=== PATIENT | female | born 1965 | race Caucasian/White ===

== ENCOUNTER 2018-07-30 17:35 | Emergency (ER) | payer MEDICAID ==
[~2018-07-30] VITALS: Ht 157.5 cm; Wt 67.3 kg
[~2018-07-30 17:35] MED LIST: DICL50TA6 PO; HYDR-4383 PO; OMEP40CA PO; ONDA4TAB6 PO
[2018-07-30 18:16] LABS: BASOPHILS % (AUTO) 0.3 % (0-1); EOSINOPHILS # (AUTO) 0.1 X10'3 (0-0.9); EOSINOPHILS % (AUTO) 0.8 % (0-6); HEMATOCRIT 45.5 % (35.0-45.0); HEMOGLOBIN 15.7 g/dl (12.0-16.0); LYMPHOCYTES % (AUTO) 16.5 % (21-51); MEAN CORPUSCULAR HEMOGLOBIN 32.2 PG (27.0-31.0); MEAN CORPUSCULAR HGB CONC 34.4 % (33.0-36.5); MEAN CORPUSCULAR VOLUME 93.7 FL (78-98); MEAN PLATELET VOLUME 9.1 FL (7.4-10.4); MONOCYTES # (AUTO) 0.7 X10'3 (0-0.9); MONOCYTES % (AUTO) 5.6 % (2-12); NEUTROPHILS # (AUTO) 9.3 X10'3 (1.8-7.7); NEUTROPHILS % (AUTO) 76.8 % (42-75); PLATELET COUNT 351 X10'3 (140-440); RED BLOOD COUNT 4.86 X10'6 (4.20-5.60); RED CELL DISTRIBUTION WIDTH 14.7 % (11.5-14.5); WHITE BLOOD COUNT 12.1 X10'3 (4.5-11.0)
[2018-07-30 18:31] LABS: ALANINE AMINOTRANSFERASE 38 U/L (12-78); ALBUMIN 3.6 G/DL (3.4-5.0); ALBUMIN/GLOBULIN RATIO 0.8 (1.1-1.5); ALKALINE PHOSPHATASE 175 IU/L (46-116); ANION GAP 13 (8-16); ASPARTATE AMINO TRANSFERASE 19 U/L (10-37); BILIRUBIN,TOTAL 0.4 MG/DL (0.1-1.0); BLOOD UREA NITROGEN 14 MG/DL (7-18); CALCIUM 10.2 MG/DL (8.5-10.1); CHLORIDE 101 MMOL/L (99-107); CREATININE 1.17 MG/DL (0.40-0.90); GLUCOSE 110 MG/DL (70-104); LIPASE 229 U/L (73-393); POTASSIUM 3.5 MMOL/L (3.5-5.1); SODIUM 137 MMOL/L (135-145); TOTAL CARBON DIOXIDE 23.2 MMOL/L (24-32); TOTAL PROTEIN 8.4 G/DL (6.4-8.2); eGFR 49 ML/MIN
[2018-07-30 18:48] LABS: PROTHROMBIN TIME 10.3 SECONDS (9.0-12.0)
[2018-07-30] MEDS ORDERED: albuterol 2.5 MG/3 ML nebule NEB ONE (20:10)
[2018-07-30] MEDS ORDERED: ondansetron/PF 4mg/2ml inj IV ONE (20:10)
[2018-07-30] MEDS ORDERED: normal saline 1000ML IV soln IVB ONE (20:10)
[2018-07-30] MEDS ORDERED: benzonatate 100mg capsule PO ONE (20:10)
[2018-07-30] MEDS ORDERED: acetaminophen 325mg tablet PO ONE (21:45)
[2018-07-30 21:58] LABS: CLARITY,URINE CLEAR (Clear); COLOR,URINE YELLOW (Yellow); GLUCOSE, URINE NEGATIVE (Neg); KETONES,URINE NEGATIVE (Neg); LEUKOCYTE ESTERASE ,URINE NEGATIVE (Neg); NITRITES, URINE NEGATIVE (Neg); OCCULT BLOOD,URINE NEGATIVE (Neg); PROTEIN,URINE 100 mg/dl (Neg)
[2018-07-30 22:11] LABS: UA COLLECTION TYPE CLN CATCH MIDSTREAM
[2018-07-30 22:12] LABS: BACTERIA,URINE FEW /HPF (Neg); RBC,URINE 0-2 /HPF (0-2); SQUAMOUS EPITHELIAL CELL,UR FEW /LPF (FEW); WBC,URINE 0-4 /HPF (0-4)
[2018-07-30 22:36] LABS: URINE HCG POSITIVE (NEG)
[2018-07-30] MEDS ORDERED: BENZ-16 PO (22:43)
[2018-07-30] MEDS ORDERED: ONDA8TAB6 PO (22:43)
[2018-07-30] MEDS ORDERED: ALBU18HF2 IH (22:43)
[2018-07-30 22:49] VITALS: BP 149/74
== END 2018-07-30 22:55 | disposition home or self-care (01) ==
LOC: ER 17:36
DX: E86.0 Dehydration (principal); J06.9 Acute upper respiratory infection, unspecified; R11.2 Nausea with vomiting, unspecified; R06.2 Wheezing; R10.10 Upper abdominal pain, unspecified; R10.84 Generalized abdominal pain; F17.210 Nicotine dependence, cigarettes, uncomplicated; Z88.8 Allergy status to other drugs, medicaments and biological substances; Z88.6 Allergy status to analgesic agent; Z79.899 Other long term (current) drug therapy
CPT/HCPCS: 36415; 71046; 80053; 81001; 81025; 82948; 83690; 85025; 85610; 87502; 87503; 94640; 94760; 96374; 99284; J2405; J7030

== ENCOUNTER 2019-07-13 13:31 | Emergency (ER) | payer MEDICAID ==
[~2019-07-13] VITALS: Ht 160 cm; Wt 64.0 kg
[~2019-07-13 13:31] MED LIST changes: +ALBU18HF2 IH; +ONDA8TAB6 PO
[2019-07-13 13:39] VITALS: BP 135/83
[2019-07-13] MEDS ORDERED: morphine 4 MG/ML inj SYRINge IM ONE (15:00)
[2019-07-13] MEDS ORDERED: ondansetron 4mg rapidly disintigrating tab PO ONE (15:00)
[2019-07-13 15:10] LABS: CLARITY,URINE CLEAR (Clear); COLOR,URINE YELLOW (Yellow); GLUCOSE, URINE NEGATIVE (Neg); KETONES,URINE NEGATIVE (Neg); LEUKOCYTE ESTERASE ,URINE NEGATIVE (Neg); NITRITES, URINE NEGATIVE (Neg); OCCULT BLOOD,URINE NEGATIVE (Neg); PH,URINE 6.5 (4.8-8.0); PROTEIN,URINE NEGATIVE (Neg); UROBILINOGEN,URINE 0.2 E.U/dL (0.2-1.0)
[2019-07-13 15:11] LABS: UA COLLECTION TYPE CLN CATCH MIDSTREAM
[2019-07-13 15:27] LABS: BASOPHILS % (AUTO) 0.5 % (0-1); EOSINOPHILS % (AUTO) 0.5 % (0-6); HEMATOCRIT 41.8 % (35.0-45.0); HEMOGLOBIN 14.4 g/dl (12.0-16.0); LYMPHOCYTES # (AUTO) 1.8 X10'3 (1.1-4.8); LYMPHOCYTES % (AUTO) 31.7 % (21-51); MEAN CORPUSCULAR HEMOGLOBIN 31.3 PG (27.0-31.0); MEAN CORPUSCULAR HGB CONC 34.6 g/dL (33.0-36.5); MEAN CORPUSCULAR VOLUME 90.5 FL (78-98); MEAN PLATELET VOLUME 9.1 FL (7.4-10.4); MONOCYTES # (AUTO) 0.2 X10'3 (0-0.9); MONOCYTES % (AUTO) 4.1 % (2-12); NEUTROPHILS # (AUTO) 3.6 X10'3 (1.8-7.7); NEUTROPHILS % (AUTO) 63.2 % (42-75); PLATELET COUNT 330 X10'3 (140-440); RED BLOOD COUNT 4.62 X10'6 (4.20-5.60); RED CELL DISTRIBUTION WIDTH 13.6 % (11.5-14.5); WHITE BLOOD COUNT 5.7 X10'3 (4.5-11.0)
[2019-07-13 15:44] LABS: ALANINE AMINOTRANSFERASE 19 U/L (12-78); ALBUMIN 4.1 G/DL (3.4-5.0); ALBUMIN/GLOBULIN RATIO 1.1 (1.1-1.5); ALKALINE PHOSPHATASE 78 IU/L (46-116); ANION GAP 8 (8-16); ASPARTATE AMINO TRANSFERASE 15 U/L (10-37); BILIRUBIN,TOTAL 0.3 MG/DL (0.1-1.0); BLOOD UREA NITROGEN 11 MG/DL (7-18); BUN/CREATININE RATIO 14.1 (6.6-38.0); CALCIUM 9.6 MG/DL (8.5-10.1); CHLORIDE 109 MMOL/L (99-107); CREATININE 0.78 MG/DL (0.40-0.90); GLUCOSE 99 MG/DL (70-104); LIPASE 202 U/L (73-393); POTASSIUM 3.8 MMOL/L (3.5-5.1); SODIUM 141 MMOL/L (135-145); TOTAL CARBON DIOXIDE 23.6 MMOL/L (24-32); TOTAL PROTEIN 7.7 G/DL (6.4-8.2); eGFR 77 ML/MIN
[2019-07-13] MEDS ORDERED: CYCL-1 PO (16:42)
[2019-07-13] MEDS ORDERED: IBUP-1984 PO (16:42)
[2019-07-13] MEDS ORDERED: ketorolac tromethamine 15mg/ml inj. IM ONE (16:45)
== END 2019-07-13 17:00 | disposition home or self-care (01) ==
LOC: ER 13:32
DX: M54.5 Low back pain (principal); F17.200 Nicotine dependence, unspecified, uncomplicated; Z98.890 Other specified postprocedural states; Z79.899 Other long term (current) drug therapy; Z88.8 Allergy status to other drugs, medicaments and biological substances
CPT/HCPCS: 36415; 80053; 81003; 83690; 85025; 96372; 99283; J1885; J2270

== ENCOUNTER 2020-11-06 15:36 | Emergency (ER) | payer MEDICAID ==
[~2020-11-06] VITALS: Ht 160 cm; Wt 59.1 kg
[~2020-11-06 15:36] MED LIST changes: +CYCL-1 PO
[2020-11-06 16:59] LABS: BASOPHILS # (AUTO) 0.1 X10'3 (0-0.2); BASOPHILS % (AUTO) 0.7 % (0-1); EOSINOPHILS # (AUTO) 0.1 X10'3 (0-0.9); HEMOGLOBIN 15.2 g/dl (12.0-16.0); LYMPHOCYTES # (AUTO) 2.2 X10'3 (1.1-4.8); LYMPHOCYTES % (AUTO) 24.2 % (21-51); MEAN CORPUSCULAR HEMOGLOBIN 30.9 PG (27.0-31.0); MEAN CORPUSCULAR HGB CONC 34.4 g/dL (33.0-36.5); MEAN CORPUSCULAR VOLUME 89.7 FL (78-98); MEAN PLATELET VOLUME 8.6 FL (7.4-10.4); MONOCYTES # (AUTO) 0.4 X10'3 (0-0.9); MONOCYTES % (AUTO) 4.7 % (2-12); NEUTROPHILS # (AUTO) 6.3 X10'3 (1.8-7.7); NEUTROPHILS % (AUTO) 69.4 % (42-75); PLATELET COUNT 398 X10'3 (140-440); RED BLOOD COUNT 4.91 X10'6 (4.20-5.60); RED CELL DISTRIBUTION WIDTH 13.3 % (11.5-14.5)
[2020-11-06 17:13] LABS: ALANINE AMINOTRANSFERASE 25 U/L (12-78); ALBUMIN 4.4 G/DL (3.4-5.0); ALBUMIN/GLOBULIN RATIO 1.2 (1.1-1.5); ALKALINE PHOSPHATASE 102 IU/L (46-116); AMYLASE 127 U/L (25-115); ANION GAP 12 (8-16); ASPARTATE AMINO TRANSFERASE 13 U/L (10-37); BILIRUBIN,TOTAL 0.4 MG/DL (0.1-1.0); BLOOD UREA NITROGEN 16 MG/DL (7-18); BUN/CREATININE RATIO 17.8 (6.6-38.0); CALCIUM 9.6 MG/DL (8.5-10.1); CHLORIDE 106 MMOL/L (99-107); GLUCOSE 84 MG/DL (70-104); LIPASE 298 U/L (73-393); POTASSIUM 4.1 MMOL/L (3.5-5.1); SODIUM 142 MMOL/L (135-145); TOTAL CARBON DIOXIDE 24.3 MMOL/L (24-32); TOTAL PROTEIN 8.1 G/DL (6.4-8.2); eGFR 65 ML/MIN
[2020-11-06] MEDS ORDERED: morphine 10mg/ml inj. IV PRN (17:30)
[2020-11-06] MEDS ORDERED: normal saline 1000ml 1,000 ML IV ONE (17:30)
[2020-11-06] MEDS ORDERED: haloperidol lactate 5mg/ml inj IM ONE (17:30)
[2020-11-06] MEDS ORDERED: iohexol 300mg/ml 100ml inj. ONE (18:05)
--- NOTE | 2020-11-06 18:06 | NUR ---
Patient to CT scan
[2020-11-06 18:08] LABS: CLARITY,URINE CLEAR (Clear); COLOR,URINE STRAW (Yellow); GLUCOSE, URINE NEGATIVE (Neg); KETONES,URINE NEGATIVE (Neg); LEUKOCYTE ESTERASE ,URINE NEGATIVE (Neg); NITRITES, URINE NEGATIVE (Neg); OCCULT BLOOD,URINE TRACE-INTACT (Neg); PROTEIN,URINE NEGATIVE (Neg); UROBILINOGEN,URINE 0.2 E.U/dL (0.2-1.0)
[2020-11-06 18:41] LABS: UA COLLECTION TYPE CLN CATCH MIDSTREAM
[2020-11-06 18:43] LABS: BACTERIA,URINE FEW /HPF (Neg); RBC,URINE 0-2 /HPF (0-2); SQUAMOUS EPITHELIAL CELL,UR FEW /LPF (FEW); WBC,URINE 0-4 /HPF (0-4)
[2020-11-06] MEDS ORDERED: morphine 10mg/ml inj. IV ONE (19:25)
[2020-11-06 19:49] VITALS: BP 124/74
[2020-11-06 20:59] LABS: OCCULT BLOOD STOOL NEGATIVE (Neg)
== END 2020-11-06 19:50 | disposition home or self-care (01) ==
LOC: ER 15:37
DX: R10.13 Epigastric pain (principal); R11.2 Nausea with vomiting, unspecified; R19.7 Diarrhea, unspecified; F17.200 Nicotine dependence, unspecified, uncomplicated; Z88.8 Allergy status to other drugs, medicaments and biological substances; Z79.899 Other long term (current) drug therapy
CPT/HCPCS: 36415; 74177; 80053; 81001; 82150; 82272; 83690; 85025; 96361; 96372; 96374; 96376; 99285; J1630; J2270; J7030; Q9967

== ENCOUNTER 2022-02-15 18:03 | Emergency (ER) | payer MEDICAID ==
[~2022-02-15] VITALS: Ht 162.6 cm; Wt 56.4 kg
[2022-02-15 19:35] LABS: CLARITY,URINE SLIGHTLY CLOUDY (Clear); COLOR,URINE YELLOW (Yellow); GLUCOSE, URINE 100 mg/dl (Neg); KETONES,URINE NEGATIVE (Neg); LEUKOCYTE ESTERASE ,URINE MODERATE (Neg); NITRITES, URINE NEGATIVE (Neg); OCCULT BLOOD,URINE SMALL (Neg); PROTEIN,URINE 100 mg/dl (Neg); UROBILINOGEN,URINE 0.2 E.U/dL (0.2-1.0)
[2022-02-15 19:36] LABS: BASOPHILS % (AUTO) 0.4 % (0-1); EOSINOPHILS % (AUTO) 0.4 % (0-6); HEMATOCRIT 42.6 % (35.0-45.0); HEMOGLOBIN 14.9 g/dl (12.0-16.0); LYMPHOCYTES # (AUTO) 2.8 X10'3 (1.1-4.8); LYMPHOCYTES % (AUTO) 24.3 % (21-51); MEAN CORPUSCULAR HEMOGLOBIN 31.6 PG (27.0-31.0); MEAN CORPUSCULAR HGB CONC 34.9 g/dL (33.0-36.5); MEAN CORPUSCULAR VOLUME 90.8 FL (78-98); MONOCYTES # (AUTO) 0.7 X10'3 (0-0.9); NEUTROPHILS # (AUTO) 7.8 X10'3 (1.8-7.7); NEUTROPHILS % (AUTO) 68.9 % (42-75); PLATELET COUNT 366 X10'3 (140-440); RED CELL DISTRIBUTION WIDTH 14.2 % (11.5-14.5); WHITE BLOOD COUNT 11.4 X10'3 (4.5-11.0)
[2022-02-15 19:45] LABS: UA COLLECTION TYPE CLN CATCH MIDSTREAM
[2022-02-15 19:48] LABS: BACTERIA,URINE FEW /HPF (Neg); MUCUS STRANDS FEW /LPF (Neg); RBC,URINE 0-2 /HPF (0-2); SQUAMOUS EPITHELIAL CELL,UR MODERATE /LPF (FEW)
[2022-02-15 19:54] LABS: ALANINE AMINOTRANSFERASE 23 U/L (12-78); ALBUMIN 3.8 G/DL (3.4-5.0); ALBUMIN/GLOBULIN RATIO 1.1 (1.1-1.5); ALKALINE PHOSPHATASE 117 IU/L (46-116); ANION GAP 15 (8-16); ASPARTATE AMINO TRANSFERASE 26 U/L (10-37); BILIRUBIN,TOTAL 0.3 MG/DL (0.1-1.0); BLOOD UREA NITROGEN 11 MG/DL (7-18); CALCIUM 9.5 MG/DL (8.5-10.1); CHLORIDE 109 MMOL/L (99-107); GLUCOSE 97 MG/DL (70-104); LIPASE 446 U/L (73-393); SODIUM 144 MMOL/L (135-145); TOTAL PROTEIN 7.2 G/DL (6.4-8.2); eGFR 52 ML/MIN
[2022-02-15 20:02] LABS: POTASSIUM 2.8 MMOL/L (3.5-5.1)
--- NOTE | 2022-02-15 20:03 | NUR ---
Critical lab, K is 2.8. pneumatic systems operator and technical services manager notified. Dr. Cyr will be notified.
[2022-02-15] MEDS ORDERED: potassium Cl 10 mEq/100mL bag IV ONE ×2 (21:05→22:10)
[2022-02-15] MEDS ORDERED: ondansetron 4mg rapidly disintigrating tab PO ONE (21:55)
[2022-02-15] MEDS ORDERED: pantoprazole 40MG/NS 100ML BAG 100 ML IV ONE (22:10)
[2022-02-15] MEDS ORDERED: normal saline 1000ML IV soln IVB ONE (22:10)
[2022-02-15] MEDS ORDERED: morphine 4 MG/ML inj SYRINge IV ONE (22:40)
[2022-02-15] MEDS ORDERED: sulfamethoxazole/trimethoprim DS (800/160mg) tablet PO ONE (23:15)
[2022-02-16] MEDS ORDERED: ondansetron/PF 4mg/2ml inj IV ONE (00:30)
[2022-02-16] MEDS ORDERED: potassium Cl 20 mEq SR tablet PO ONE (01:25)
[2022-02-16] MEDS ORDERED: magnesium 2GM in 50ml NS 50 ML IV ONE (01:25)
[2022-02-16] MEDS ORDERED: PANT20TA2 PO (02:01)
[2022-02-16] MEDS ORDERED: HYDR-3965 PO (02:01)
[2022-02-16] MEDS ORDERED: ONDA4TAB12 PO (02:01)
[2022-02-16] MEDS ORDERED: morphine 4 MG/ML inj SYRINge IV ONE (02:05)
[2022-02-16 02:11] VITALS: BP 152/81
[2022-02-16] MEDS ORDERED: SULF1TAB49 PO (02:18)
== END 2022-02-16 02:21 | disposition home or self-care (01) ==
LOC: ER 18:04
DX: K29.50 Unspecified chronic gastritis without bleeding (principal); K86.1 Other chronic pancreatitis; R11.2 Nausea with vomiting, unspecified; F17.200 Nicotine dependence, unspecified, uncomplicated; Z98.890 Other specified postprocedural states; Z79.899 Other long term (current) drug therapy
CPT/HCPCS: 36415; 80053; 81001; 83690; 83735; 85025; 87088; 96365; 96366; 96368; 96375; 96376; 99285; C9113; J2270; J2405; J3475; J3480; J7030

== ENCOUNTER 2022-12-31 18:13 | Emergency (ER) | payer MEDICAID ==
[~2022-12-31] VITALS: Ht 162.6 cm; Wt 57.2 kg
[~2022-12-31 18:13] MED LIST changes: +ONDA4TAB12 PO; +PANT20TA2 PO
[2022-12-31 19:02] LABS: BASOPHILS # (AUTO) 0.1 X10'3 (0-0.2); BASOPHILS % (AUTO) 0.8 % (0-1); EOSINOPHILS # (AUTO) 0.1 X10'3 (0-0.9); EOSINOPHILS % (AUTO) 0.6 % (0-6); HEMATOCRIT 39.1 % (35.0-45.0); LYMPHOCYTES # (AUTO) 2.8 X10'3 (1.1-4.8); LYMPHOCYTES % (AUTO) 22.4 % (21-51); MEAN CORPUSCULAR HEMOGLOBIN 31.5 PG (27.0-31.0); MEAN CORPUSCULAR HGB CONC 33.3 g/dL (33.0-36.5); MEAN CORPUSCULAR VOLUME 94.4 FL (78-98); MEAN PLATELET VOLUME 9.1 FL (7.4-10.4); MONOCYTES # (AUTO) 0.7 X10'3 (0-0.9); MONOCYTES % (AUTO) 5.8 % (2-12); NEUTROPHILS # (AUTO) 8.7 X10'3 (1.8-7.7); NEUTROPHILS % (AUTO) 70.4 % (42-75); PLATELET COUNT 439 X10'3 (140-440); RED BLOOD COUNT 4.14 X10'6 (4.20-5.60); RED CELL DISTRIBUTION WIDTH 15.6 % (11.5-14.5); WHITE BLOOD COUNT 12.4 X10'3 (4.5-11.0)
[2022-12-31 19:15] LABS: ALANINE AMINOTRANSFERASE 10 U/L (12-78); ALBUMIN 4.1 G/DL (3.4-5.0); ALBUMIN/GLOBULIN RATIO 1.2 (1.1-1.5); ALKALINE PHOSPHATASE 99 IU/L (46-116); ANION GAP 20 (8-16); ASPARTATE AMINO TRANSFERASE 6 U/L (10-37); BILIRUBIN,TOTAL 0.3 MG/DL (0.1-1.0); BLOOD UREA NITROGEN 16 MG/DL (7-18); CALCIUM 9.3 MG/DL (8.5-10.1); CHLORIDE 110 MMOL/L (99-107); CREATININE 1.07 MG/DL (0.40-0.90); GLUCOSE 104 MG/DL (70-104); POTASSIUM 3.2 MMOL/L (3.5-5.1); SODIUM 145 MMOL/L (135-145); TOTAL CARBON DIOXIDE 15.1 MMOL/L (24-32); TOTAL PROTEIN 7.5 G/DL (6.4-8.2); eGFR 53 ML/MIN
[2022-12-31 19:26] LABS: MAGNESIUM 1.9 MG/DL (1.5-2.4)
[2022-12-31 19:36] LABS: ETHANOL < 0.010 GM/DL (0.0-0.010)
[2022-12-31 19:53] LABS: D-DIMER 0.36 MG/L FEU (0-0.50)
[2022-12-31 20:27] LABS: CLARITY,URINE CLEAR (Clear); COLOR,URINE STRAW (Yellow); GLUCOSE, URINE NEGATIVE (Neg); KETONES,URINE NEGATIVE (Neg); LEUKOCYTE ESTERASE ,URINE NEGATIVE (Neg); NITRITES, URINE NEGATIVE (Neg); OCCULT BLOOD,URINE NEGATIVE (Neg); PH,URINE 6.5 (4.8-8.0); PROTEIN,URINE NEGATIVE (Neg); UROBILINOGEN,URINE 0.2 E.U/dL (0.2-1.0)
[2022-12-31] MEDS ORDERED: HYDROcodone/acetaminophen 10/325mg tab PO ONE (20:30)
[2022-12-31 20:34] LABS: UA COLLECTION TYPE CLN CATCH MIDSTREAM
[2022-12-31 20:48] LABS: URINE AMPHETAMINE SCREEN NEGATIVE (Neg); URINE BARBITUATE SCREEN NEGATIVE (Neg); URINE BENZODIAZEPINES SCREEN NEGATIVE (Neg); URINE CANNABINOID SCREEN NEGATIVE (Neg); URINE COCAINE SCREEN NEGATIVE (Neg); URINE METHADONE SCREEN NEGATIVE (Neg); URINE OPIATE SCREEN NEGATIVE (Neg); URINE PHENCYCLIDINE SCREEN NEGATIVE (Neg)
[2022-12-31 21:00] VITALS: BP 150/87
[2022-12-31] MEDS ORDERED: diazepam 5mg tablet PO ONE (21:15)
== END 2022-12-31 22:02 | disposition home or self-care (01) ==
LOC: ER 18:14
DX: R07.9 Chest pain, unspecified (principal); R06.02 Shortness of breath; Z88.8 Allergy status to other drugs, medicaments and biological substances; Z79.899 Other long term (current) drug therapy; Z98.890 Other specified postprocedural states
CPT/HCPCS: 36415; 71045; 80053; 80305; 80320; 81003; 83735; 83880; 84484; 85025; 85379; 93005; 99285

== ENCOUNTER 2023-01-28 18:05 | Inpatient (IN) | payer MEDICAID ==
[~2023-01-28] VITALS: Ht 162.6 cm; Wt 51.8 kg
[2023-01-28 18:17] LABS: EOSINOPHILS # (AUTO) 0.1 X10'3 (0-0.9); MEAN PLATELET VOLUME 8.8 FL (7.4-10.4); RED CELL DISTRIBUTION WIDTH 14.2 % (11.5-14.5)
[2023-01-28 18:19] LABS: BASOPHILS # (AUTO) 0.1 X10'3 (0-0.2); BASOPHILS % (AUTO) 0.9 % (0-1); EOSINOPHILS % (AUTO) 0.6 % (0-6); HEMATOCRIT 45.3 % (35.0-45.0); HEMOGLOBIN 15.3 g/dl (12.0-16.0); LYMPHOCYTES # (AUTO) 3.9 X10'3 (1.1-4.8); LYMPHOCYTES % (AUTO) 34.1 % (21-51); MEAN CORPUSCULAR HEMOGLOBIN 32.5 PG (27.0-31.0); MEAN CORPUSCULAR HGB CONC 33.9 g/dL (33.0-36.5); MEAN CORPUSCULAR VOLUME 95.9 FL (78-98); MONOCYTES # (AUTO) 0.6 X10'3 (0-0.9); MONOCYTES % (AUTO) 5.7 % (2-12); NEUTROPHILS # (AUTO) 6.6 X10'3 (1.8-7.7); NEUTROPHILS % (AUTO) 58.7 % (42-75); PLATELET COUNT 448 X10'3 (140-440); RED BLOOD COUNT 4.72 X10'6 (4.20-5.60); WHITE BLOOD COUNT 11.3 X10'3 (4.5-11.0)
[2023-01-28 18:32] LABS: ALANINE AMINOTRANSFERASE 11 U/L (12-78); ALBUMIN 4.6 G/DL (3.4-5.0); ALBUMIN/GLOBULIN RATIO 1.3 (1.1-1.5); ALKALINE PHOSPHATASE 125 IU/L (46-116); ANION GAP 12 (8-16); ASPARTATE AMINO TRANSFERASE 12 U/L (10-37); BILIRUBIN,TOTAL 0.4 MG/DL (0.1-1.0); BLOOD UREA NITROGEN 12 MG/DL (7-18); BUN/CREATININE RATIO 9.6 (10.0-20.0); CALCIUM 10.3 MG/DL (8.5-10.1); CHLORIDE 108 MMOL/L (99-107); CREATININE 1.25 MG/DL (0.40-0.90); GLUCOSE 127 MG/DL (70-104); POTASSIUM 3.4 MMOL/L (3.5-5.1); SODIUM 138 MMOL/L (135-145); TOTAL CARBON DIOXIDE 18.3 MMOL/L (24-32); TOTAL PROTEIN 8.1 G/DL (6.4-8.2); eGFR 44 ML/MIN
[2023-01-28] MEDS ORDERED: normal saline 1000ml 1,000 ML IV ONE (20:45)
[2023-01-28] MEDS ORDERED: nitroGLYCERIN 0.4mg/hour patch TD ONE (20:45)
[2023-01-28] MEDS ORDERED: morphine 4 MG/ML inj SYRINge IV ONE (20:45)
[2023-01-28] MEDS ORDERED: normal saline 1000ML IV soln IVB ONE (20:50)
[2023-01-28] MEDS ORDERED: magnesium hydroxide 30ml (MOM) UD suspension PO PRN (21:15)
[2023-01-28] MEDS ORDERED: mag hydrox/Alum hydrox/simeth 30ml oral suspension PO PRN (21:15)
[2023-01-28] MEDS ORDERED: PERFLUTREN PROTEIN-A MICROSPHR (Optison) 0.22 MG/ML 3ML VIAL IV ONE (21:15)
[2023-01-28] MEDS ORDERED: magnesium 4gm in 100ml NS 100 ML IV PRN (21:15)
[2023-01-28] MEDS ORDERED: acetaminophen 325mg tablet PO PRN (21:15)
[2023-01-28] MEDS ORDERED: potassium Cl 20 mEq SR tablet PO PRN (21:15)
[2023-01-28] MEDS ORDERED: potassium Cl 40MEQ/1/2NS 520ml 520 ML IV PRN (21:15)
[2023-01-28 21:26] LABS: APTT 27 SECONDS (22-32)
[2023-01-28] MEDS ORDERED: CLON-527 PO (21:27)
[2023-01-28] MEDS ORDERED: HYDR-3972 PO (21:27)
[2023-01-28] MEDS ORDERED: GABA-530 PO (21:27)
[2023-01-28] MEDS ORDERED: ONDA8TAB13 PO (21:27)
[2023-01-28] MEDS ORDERED: BACL-11 PO (21:27)
[2023-01-28] MEDS ORDERED: FLEC100T2 PO (21:27)
[2023-01-28] MEDS ORDERED: CLON0.2T PO (21:27)
[2023-01-28] MEDS ORDERED: OMEP40CA21 PO (21:27)
[2023-01-28] MEDS ORDERED: hydrALAZINE 20mg/ml inj. IV PRN (22:20)
[2023-01-29] MEDS: gabapentin 100mg capsule PO SCH ×4 (00:14→23:26)
[2023-01-29] MEDS: ondansetron/PF 4mg/2ml inj IV PRN ×4 (00:14→19:52)
[2023-01-29] MEDS: HYDROcodone/acetaminophen 10/325mg tab PO SCH ×4 (01:18→19:54)
[2023-01-29] MEDS ORDERED: HYDROcodone/acetaminophen 10/325mg tab PO ONE (05:25)
[2023-01-29] MEDS ORDERED: ondansetron 4mg rapidly disintigrating tab PO PRN (08:00)
[2023-01-29] MEDS: K and/or MAG REPLACEMENT MC SCH ×2 (08:00→19:41)
[2023-01-29 08:06] LABS: ALANINE AMINOTRANSFERASE 8 U/L (12-78); ALBUMIN 3.6 G/DL (3.4-5.0); ALBUMIN/GLOBULIN RATIO 1.2 (1.1-1.5); ALKALINE PHOSPHATASE 105 IU/L (46-116); ANION GAP 12 (8-16); ASPARTATE AMINO TRANSFERASE 11 U/L (10-37); BILIRUBIN,TOTAL 0.4 MG/DL (0.1-1.0); BLOOD UREA NITROGEN 11 MG/DL (7-18); BUN/CREATININE RATIO 10.9 (10.0-20.0); CALCIUM 9.4 MG/DL (8.5-10.1); CHLORIDE 110 MMOL/L (99-107); CREATININE 1.01 MG/DL (0.40-0.90); GLUCOSE 96 MG/DL (70-104); MAGNESIUM 2.1 MG/DL (1.5-2.4); POTASSIUM 3.3 MMOL/L (3.5-5.1); SODIUM 139 MMOL/L (135-145); TOTAL CARBON DIOXIDE 16.9 MMOL/L (24-32); TOTAL PROTEIN 6.6 G/DL (6.4-8.2); eGFR 57 ML/MIN
[2023-01-29 08:19] LABS: BASOPHILS # (AUTO) 0.1 X10'3 (0-0.2); BASOPHILS % (AUTO) 0.8 % (0-1); EOSINOPHILS # (AUTO) 0.1 X10'3 (0-0.9); EOSINOPHILS % (AUTO) 1.4 % (0-6); HEMATOCRIT 41.7 % (35.0-45.0); HEMOGLOBIN 13.9 g/dl (12.0-16.0); LYMPHOCYTES # (AUTO) 4.8 X10'3 (1.1-4.8); LYMPHOCYTES % (AUTO) 44.4 % (21-51); MEAN CORPUSCULAR HEMOGLOBIN 33.1 PG (27.0-31.0); MEAN CORPUSCULAR HGB CONC 33.4 g/dL (33.0-36.5); MEAN PLATELET VOLUME 8.7 FL (7.4-10.4); MONOCYTES # (AUTO) 0.9 X10'3 (0-0.9); NEUTROPHILS # (AUTO) 4.9 X10'3 (1.8-7.7); NEUTROPHILS % (AUTO) 45.4 % (42-75); PLATELET COUNT 292 X10'3 (140-440); RED BLOOD COUNT 4.21 X10'6 (4.20-5.60); RED CELL DISTRIBUTION WIDTH 14.3 % (11.5-14.5); WHITE BLOOD COUNT 10.9 X10'3 (4.5-11.0)
[2023-01-29] MEDS: cloNIDine 0.1 mg tablet PO SCH ×2 (09:16→19:53)
[2023-01-29] MEDS: potassium Cl 20 mEq SR tablet PO PRN ×2 (09:16→19:53)
[2023-01-29] MEDS: nicotine 14mg patch - 24hr TD SCH (09:16)
[2023-01-29] MEDS: baclofen 10mg tablet PO SCH ×2 (09:17→19:54)
[2023-01-29] MEDS: docusate sod 100mg capsule PO SCH ×2 (09:17→19:53)
[2023-01-29] MEDS: flecainide 50mg tablet PO SCH (09:18)
[2023-01-29] MEDS: pantoprazole 40mg Tablet.DR PO SCH (09:18)
[2023-01-29] MEDS: normal saline 1000ml 1,000 ML IV SCH ×2 (10:10→23:23)
[2023-01-29] MEDS ORDERED: aminophylline 250mg/10ml inj. IV PRN (10:20)
[2023-01-29] MEDS ORDERED: metoprolol tartrate 1mg/ml inj IV PRN (10:20)
[2023-01-29] MEDS ORDERED: nitroGLYCERIN 0.4mg SUBLingual tab SL PRN (10:20)
[2023-01-29 10:27] VITALS: BP 120/70
[2023-01-29 12:55] VITALS: BP 105/65
[2023-01-29] MEDS: regadenoson 0.4mg/5ml syringe IV PRN ×2 (12:55→13:36)
[2023-01-29 15:08] VITALS: BP 112/73
[2023-01-29] MEDS ORDERED: iohexol 300mg/ml 100ml inj. ONE (15:40)
[2023-01-29] MEDS ORDERED: LIPA1CAP18 PO (17:59)
[2023-01-29 18:00] VITALS: BP 133/73
[2023-01-29] MEDS ORDERED: enoxaparin 40mg/0.4ml syringe SQ SCH (20:00)
[2023-01-30 02:00] VITALS: BP 98/57
[2023-01-30] MEDS: HYDROcodone/acetaminophen 10/325mg tab PO SCH ×2 (02:17→07:30)
[2023-01-30 06:00] VITALS: BP 95/55
[2023-01-30] MEDS: gabapentin 100mg capsule PO SCH (07:32)
[2023-01-30] MEDS: docusate sod 100mg capsule PO SCH (07:32)
[2023-01-30] MEDS: flecainide 50mg tablet PO SCH (07:33)
[2023-01-30] MEDS: pantoprazole 40mg Tablet.DR PO SCH (07:33)
[2023-01-30] MEDS: cloNIDine 0.1 mg tablet PO SCH (07:33)
[2023-01-30] MEDS: nicotine 14mg patch - 24hr TD SCH (07:35)
[2023-01-30] MEDS: baclofen 10mg tablet PO SCH (07:35)
[2023-01-30] MEDS: K and/or MAG REPLACEMENT MC SCH (08:00)
[2023-01-30 08:18] LABS: BASOPHILS # (AUTO) 0.1 X10'3 (0-0.2); BASOPHILS % (AUTO) 1.2 % (0-1); EOSINOPHILS # (AUTO) 0.1 X10'3 (0-0.9); EOSINOPHILS % (AUTO) 1.9 % (0-6); HEMATOCRIT 34.6 % (35.0-45.0); HEMOGLOBIN 11.7 g/dl (12.0-16.0); LYMPHOCYTES % (AUTO) 59.8 % (21-51); MEAN CORPUSCULAR HEMOGLOBIN 32.9 PG (27.0-31.0); MEAN CORPUSCULAR HGB CONC 33.7 g/dL (33.0-36.5); MEAN CORPUSCULAR VOLUME 97.4 FL (78-98); MEAN PLATELET VOLUME 9.3 FL (7.4-10.4); MONOCYTES # (AUTO) 0.4 X10'3 (0-0.9); MONOCYTES % (AUTO) 6.2 % (2-12); NEUTROPHILS # (AUTO) 2.1 X10'3 (1.8-7.7); NEUTROPHILS % (AUTO) 30.9 % (42-75); PLATELET COUNT 262 X10'3 (140-440); RED BLOOD COUNT 3.55 X10'6 (4.20-5.60); RED CELL DISTRIBUTION WIDTH 14.4 % (11.5-14.5); WHITE BLOOD COUNT 6.8 X10'3 (4.5-11.0)
[2023-01-30 08:48] LABS: ALANINE AMINOTRANSFERASE 11 U/L (12-78); ALBUMIN/GLOBULIN RATIO 1.1 (1.1-1.5); ALKALINE PHOSPHATASE 87 IU/L (46-116); ANION GAP 9 (8-16); ASPARTATE AMINO TRANSFERASE 11 U/L (10-37); BILIRUBIN,TOTAL 0.2 MG/DL (0.1-1.0); BLOOD UREA NITROGEN 8 MG/DL (7-18); BUN/CREATININE RATIO 6.7 (10.0-20.0); CALCIUM 8.5 MG/DL (8.5-10.1); CHLORIDE 110 MMOL/L (99-107); GLUCOSE 71 MG/DL (70-104); MAGNESIUM 1.7 MG/DL (1.5-2.4); POTASSIUM 3.4 MMOL/L (3.5-5.1); SODIUM 138 MMOL/L (135-145); TOTAL CARBON DIOXIDE 18.6 MMOL/L (24-32); TOTAL PROTEIN 5.7 G/DL (6.4-8.2); eGFR 46 ML/MIN
[2023-01-30 11:00] VITALS: BP 98/56
== END 2023-01-30 12:21 | disposition home or self-care (01) | DRG 243 ==
LOC: ER 18:05 → ED HOLD 21:17 → PCU 3S 01-29 09:54
PROVIDERS: ADMIT Family Medicine; ATTEND Internal Medicine
PROC: 4A02XM4 Measurement of Cardiac Total Activity, External Approach (ICD-10-PCS; principal; 2023-01-29)
PROC: 3E033HZ Introduction of Radioactive Substance into Peripheral Vein, Percutaneous Approach (ICD-10-PCS; 2023-01-29)
PROC: B4201ZZ Computerized Tomography (CT Scan) of Abdominal Aorta using Low Osmolar Contrast (ICD-10-PCS; 2023-01-29)
PROC: B4241ZZ Computerized Tomography (CT Scan) of Superior Mesenteric Artery using Low Osmolar Contrast (ICD-10-PCS; 2023-01-29)
PROC: B4281ZZ Computerized Tomography (CT Scan) of Bilateral Renal Arteries using Low Osmolar Contrast (ICD-10-PCS; 2023-01-29)
PROC: B42C1ZZ Computerized Tomography (CT Scan) of Pelvic Arteries using Low Osmolar Contrast (ICD-10-PCS; 2023-01-29)
PROC: B42H1ZZ Computerized Tomography (CT Scan) of Bilateral Lower Extremity Arteries using Low Osmolar Contrast (ICD-10-PCS; 2023-01-29)
PROC: B4211ZZ Computerized Tomography (CT Scan) of Celiac Artery using Low Osmolar Contrast (ICD-10-PCS; 2023-01-29)
DX: K21.9 Gastro-esophageal reflux disease without esophagitis (principal); E87.6 Hypokalemia; I10 Essential (primary) hypertension; Z72.0 Tobacco use; N28.9 Disorder of kidney and ureter, unspecified; I48.91 Unspecified atrial fibrillation; K86.1 Other chronic pancreatitis
CPT/HCPCS: 36415; 71045; 74177; 76700; 78451; 80053; 83605; 83735; 83880; 84145; 84484; 85025; 85610; 85730; 87040; 93005; 93306; 97116; 97161; 97530; 99285; A9500; G0378; J1650; J2270; J2405; J2785; J3490; J7030; J7120; Q9967